=== PATIENT | male | born 1985 | race Caucasian/White ===

== ENCOUNTER 2017-12-30 03:25 | Emergency (ER) | payer SELFPAY, BC, OTHER | END 2017-12-30 06:06 | disposition left against medical advice (07) | LOC: M ED 03:25 | DX: Z53.29 Procedure and treatment not carried out because of patient's decision for other reasons (principal) ==

== ENCOUNTER → 2020-07-13 | Outpatient (CLI) | payer SELFPAY ==
[~2020-07-13] MED LIST: ABIL30TA4 PO; ADV500INH INH; ALBUTEROL MDI; ATIV1TAB7 PO; COGENTIN PO; MACR100C3 PO; RISP3TAB2 PO; Risperdal PO; SERO1TAB3 PO; SING4GRA PO; SING5CHW PO; SINGULAIR PO; TRAZ1TAB36 PO; Trazodone PO; VENTAER INH; ZEST5TAB PO
== END ==
LOC: M LABSMTC 13:04
PROVIDERS: ATTEND Pediatrics
DX: Z20.822 Contact with and (suspected) exposure to COVID-19 (principal)

== ENCOUNTER → 2020-08-05 | Outpatient (REF) | payer MEDICARE ==
[2020-08-05 12:28] LABS: BASO % 0.4 % (0.0-1.0); EOS # 1.1 10^3/uL (0.0-0.5); EOS % 11.2 % (0.0-3.0); HEMATOCRIT 47.6 % (42.0-52.0); HEMOGLOBIN 15.4 g/dl (13.5-17.5); LYMPH # 3.3 10^3/uL (1.5-5.0); LYMPH % 33.7 % (24.0-44.0); MEAN CORPUSCULAR HEMOGLOBIN 29.1 pg (27.0-33.0); MEAN CORPUSCULAR HGB CONC 32.4 g/dl (32.0-36.5); MONO % 10.5 % (2.0-8.0); NEUTROPHILS # 4.3 10^3/uL (1.5-8.5); NEUTROPHILS % 43.9 % (36.0-66.0); PLATELET COUNT, AUTOMATED 262 10^3/uL (150-450); RED BLOOD COUNT 5.29 10^6/uL (4.30-6.10); WHITE BLOOD COUNT 9.7 10^3/uL (4.0-10.0)
[2020-08-05 12:57] LABS: ALBUMIN 3.6 GM/DL (3.2-5.2); ALT/SGPT 54 U/L (12-78); BILIRUBIN,TOTAL 0.3 MG/DL (0.2-1.0); BLOOD UREA NITROGEN 12 MG/DL (7-18); CALCIUM LEVEL 8.8 MG/DL (8.5-10.1); CARBON DIOXIDE LEVEL 27 MEQ/L (21-32); CHLORIDE LEVEL 102 MEQ/L (98-107); CHOLESTEROL LEVEL 184 MG/DL (<200); CHOLESTEROL RISK RATIO 3.914 (<5); CREATININE FOR GFR 0.95 MG/DL (0.70-1.30); GLOMERULAR FILTRATION RATE > 60.0 (>60); GLUCOSE, FASTING 95 MG/DL (70-100); HDL CHOLESTEROL 47 MG/DL (>40); LDL CHOLESTEROL 107 MG/DL (<100); NON-HDL-C 137 MG/DL; SODIUM LEVEL 137 MEQ/L (136-145); TOTAL PROTEIN 7.6 GM/DL (6.4-8.2); TRIGLYCERIDES LEVEL 150 MG/DL (<150)
== END ==
LOC: M LAB REF 11:28
PROVIDERS: ATTEND Physician Assistant
DX: Z13.228 Encounter for screening for other metabolic disorders (principal); E78.5 Hyperlipidemia, unspecified; Z79.899 Other long term (current) drug therapy

== ENCOUNTER 2021-01-18 20:29 | Emergency (ER) | payer MEDICARE ==
[~2021-01-18] VITALS: Ht 185.4 cm; Wt 108.8 kg
[2021-01-18 20:31] VITALS: BP 152/88
== END 2021-01-18 22:25 | disposition left against medical advice (07) ==
LOC: M ED 20:29
DX: Z53.21 Procedure and treatment not carried out due to patient leaving prior to being seen by health care provider (principal)

== ENCOUNTER 2021-01-19 14:52 | Emergency (ER) | payer MEDICARE ==
[~2021-01-19] VITALS: Ht 185.4 cm; Wt 113.6 kg
[2021-01-19 16:26] LABS: BASO % 0.4 % (0.0-1.0); EOS # 0.7 10^3/uL (0.0-0.5); EOS % 6.6 % (0.0-3.0); HEMATOCRIT 49.2 % (42.0-52.0); HEMOGLOBIN 16.3 g/dl (13.5-17.5); LYMPH # 2.5 10^3/uL (1.5-5.0); MEAN CORPUSCULAR HEMOGLOBIN 29.5 pg (27.0-33.0); MEAN CORPUSCULAR HGB CONC 33.1 g/dl (32.0-36.5); MEAN CORPUSCULAR VOLUME 89.1 fl (80.0-96.0); MONO # 0.9 10^3/uL (0.0-0.8); MONO % 8.9 % (2.0-8.0); NEUTROPHILS # 6.2 10^3/uL (1.5-8.5); NEUTROPHILS % 59.7 % (36.0-66.0); PLATELET COUNT, AUTOMATED 260 10^3/uL (150-450); RED BLOOD COUNT 5.52 10^6/uL (4.30-6.10); WHITE BLOOD COUNT 10.3 10^3/uL (4.0-10.0)
[2021-01-19 16:52] LABS: BLOOD UREA NITROGEN 11 MG/DL (7-18); CALCIUM LEVEL 9.1 MG/DL (8.5-10.1); CARBON DIOXIDE LEVEL 28 MEQ/L (21-32); CHLORIDE LEVEL 104 MEQ/L (98-107); CREATININE FOR GFR 0.94 MG/DL (0.70-1.30); GLOMERULAR FILTRATION RATE > 60.0 (>60); GLUCOSE, FASTING 105 MG/DL (70-100); POTASSIUM SERUM 4.2 MEQ/L (3.5-5.1); SODIUM LEVEL 138 MEQ/L (136-145)
[2021-01-19 17:38] LABS: C REACTIVE PROTEIN QUANTITATIV 1.18 MG/DL (0.00-0.30)
[2021-01-19 18:25] LABS: ERYTHROCYTE SEDIMENTATION RATE 22 mm/hr (0-15)
--- NOTE | 2021-01-19 23:26 | REPVR ---
PROCEDURE INFORMATION: Exam: MR Lumbar Spine Without and With Contrast Exam date and time: 01/19/2021 9:13 PM Age: 35 years old Clinical indication: Low back pain; Patient HX: Lower back pain; Loss of control of bowel/bladder TECHNIQUE: Imaging protocol: Multiplanar magnetic resonance images of the lumbar spine without and with intravenous contrast. Contrast material: PROHANCE; Contrast volume: 20 ml; Contrast route: INTRAVENOUS (IV); COMPARISON: No relevant prior studies available. FINDINGS: Transitional anatomy at the lumbosacral junction. S1 is considered partially lumbarized. Mild retrolisthesis of L5 on S1. Vertebral body heights are preserved. Disc desiccation at L5-S1. Negative for discitis/osteomyelitis. Conus medullaris terminates L2. No epidural fluid collection. No pathologic intrathecal enhancement. L1-L2: No central or foraminal stenosis. L2-L3: No central or foraminal stenosis. L3-L4: No central or foraminal stenosis. L4-L5: No central or foraminal stenosis. L5-S1: Mild disc bulge with posterior annular tear, mild bilateral facet joint arthropathy and small bilateral facet joint effusions. No significant central canal stenosis. There is [id number] bilateral foraminal stenosis. IMPRESSION: 1. No acute abnormality involving the lumbar spine. 2. Degenerative findings as above contributing to [id number] bilateral foraminal stenosis at L5-S1. 3. No significant central canal compromise throughout. Electronically signed by: Aj Prabhakar On 01/19/2021 23:25:53 PM
[2021-01-19 23:36] VITALS: BP 145/86
== END 2021-01-19 23:57 | disposition home or self-care (01) ==
LOC: M ED 14:52
DX: F45.8 Other somatoform disorders (principal); F84.0 Autistic disorder; F60.9 Personality disorder, unspecified; N31.9 Neuromuscular dysfunction of bladder, unspecified; Z88.0 Allergy status to penicillin

== ENCOUNTER 2021-12-28 01:20 | Inpatient (IN) | payer MEDICARE ==
[~2021-12-28] VITALS: Ht 185.4 cm; Wt 104.3 kg
[2021-12-28 02:06] LABS: HEMOGLOBIN 14.7 g/dl (13.5-17.5); MEAN CORPUSCULAR HEMOGLOBIN 29.8 pg (27.0-33.0); MEAN CORPUSCULAR HGB CONC 33.4 g/dl (32.0-36.5); MEAN CORPUSCULAR VOLUME 89.2 fl (80.0-96.0); PLATELET COUNT, AUTOMATED 210 10^3/uL (150-450); RED BLOOD COUNT 4.93 10^6/uL (4.30-6.10); WHITE BLOOD COUNT 11.7 10^3/uL (4.0-10.0)
[2021-12-28 02:43] LABS: RSV AMPLIFICATION NEGATIVE (NEGATIVE)
[2021-12-28 02:46] LABS: ACETAMINOPHEN LEVEL < 2.0 UG/ML (10.0-30.0); ALBUMIN 3.7 GM/DL (3.2-5.2); ALT/SGPT 40 U/L (12-78); BILIRUBIN,DIRECT 0.1 MG/DL (0.0-0.2); BILIRUBIN,TOTAL 0.5 MG/DL (0.2-1.0); BLOOD UREA NITROGEN 16 MG/DL (7-18); CALCIUM LEVEL 8.6 MG/DL (8.5-10.1); CARBON DIOXIDE LEVEL 30 MEQ/L (21-32); CHLORIDE LEVEL 105 MEQ/L (98-107); CREATININE FOR GFR 0.91 MG/DL (0.70-1.30); ETHYL ALCOHOL (ETHANOL) < 0.003 % (0.000-0.010); GLOMERULAR FILTRATION RATE > 60.0 (>60); GLUCOSE, FASTING 90 MG/DL (70-100); POTASSIUM SERUM 3.7 MEQ/L (3.5-5.1); SALICYLATE LEVEL < 1.7 MG/DL (5.0-30.0); SODIUM LEVEL 138 MEQ/L (136-145); TOTAL PROTEIN 7.2 GM/DL (6.4-8.2)
[2021-12-28 02:56] LABS: AMPHETAMINES LEVEL URINE NEGATIVE (NEGATIVE); BARBITURATES URINE NEGATIVE (NEGATIVE); BENZODIAZEPINES URINE NEGATIVE (NEGATIVE); CANNABINOIDS URINE NEGATIVE (NEGATIVE); COCAINE METABOLITE URINE NEGATIVE (NEGATIVE); METHADONE URINE NEGATIVE (NEGATIVE); OPIATES URINE NEGATIVE (NEGATIVE); PHENCYCLIDINE URINE NEGATIVE (NEGATIVE)
[2021-12-28] MEDS ORDERED: ADV500INH INH (03:58)
[2021-12-28] MEDS ORDERED: ALBU8.5H INH (03:58)
[2021-12-28] MEDS ORDERED: HOME MED LIST COMPLETE! XX SCH (04:00)
[2021-12-28] MEDS: ADVAIR HFA 115/21MCG INHALER INH SCH ×2 (07:53→20:32)
[2021-12-28] MEDS ORDERED: NICOTINE 21MG/24HR 1 EA TRANSDERMAL TD SCH (09:00)
[2021-12-28] MEDS ORDERED: IBUPROFEN 400MG TAB PO PRN (14:05)
[2021-12-28] MEDS ORDERED: OLANZapine ORAL DISINTEGRATING TAB 5MG PO PRN (14:05)
[2021-12-28] MEDS ORDERED: ALBUTEROL 90 MCG/ACT 8GM HFA INHALER INH PRN (14:05)
[2021-12-28] MEDS ORDERED: MOM 30ML SUSPENSION UDC PO PRN (14:05)
[2021-12-28] MEDS ORDERED: MAALOX 30 ML SUSP *UDC PO PRN (14:05)
[2021-12-29 06:37] VITALS: BP 118/63
[2021-12-29] MEDS: ADVAIR HFA 115/21MCG INHALER INH SCH ×2 (09:45→20:52)
[2021-12-29] MEDS ORDERED: hydrOXYzine 50 MG TAB PO PRN (13:30)
[2021-12-29 17:54] VITALS: BP 117/74
[2021-12-29] MEDS: risperiDONE 1 MG TAB PO SCH (20:51)
[2021-12-29] MEDS ORDERED: OLANZapine 5 MG TAB PO SCH (21:00)
[2021-12-30 06:46] VITALS: BP 114/68
[2021-12-30] MEDS: ADVAIR HFA 115/21MCG INHALER INH SCH ×2 (08:35→20:21)
[2021-12-30 17:15] VITALS: BP 105/58
[2021-12-30] MEDS: risperiDONE 1 MG TAB PO SCH (20:21)
[2021-12-31 06:36] VITALS: BP 114/73
[2021-12-31] MEDS: ADVAIR HFA 115/21MCG INHALER INH SCH ×2 (07:51→20:08)
[2021-12-31 18:41] VITALS: BP 117/71
[2021-12-31] MEDS: risperiDONE 1 MG TAB PO SCH (20:08)
[2022-01-01 07:10] VITALS: BP 114/68
[2022-01-01] MEDS: ADVAIR HFA 115/21MCG INHALER INH SCH ×2 (09:06→20:07)
[2022-01-01 18:28] VITALS: BP 119/71
[2022-01-01] MEDS: risperiDONE 1 MG TAB PO SCH (20:07)
[2022-01-02 06:27] VITALS: BP 98/56
[2022-01-02] MEDS: ADVAIR HFA 115/21MCG INHALER INH SCH (08:03)
[2022-01-02] MEDS ORDERED: RISP-8 PO (08:04)
== END 2022-01-02 11:00 | disposition home or self-care (01) | DRG 885 ==
LOC: M ED 01:20 → M ED INP 14:03 → M PSY 15:51
PROVIDERS: ADMIT Psychiatry & Neurology Psychiatry; ATTEND Psychiatry & Neurology Psychiatry
DX: F20.9 Schizophrenia, unspecified (principal); F43.10 Post-traumatic stress disorder, unspecified; Z88.0 Allergy status to penicillin; Z79.899 Other long term (current) drug therapy; J45.909 Unspecified asthma, uncomplicated

== ENCOUNTER 2022-03-01 17:23 | Emergency (ER) | payer BC, MEDICARE ==
[~2022-03-01] VITALS: Ht 185.4 cm; Wt 105.0 kg
[~2022-03-01 17:23] MED LIST changes: +ALBU8.5H INH; +RISP-8 PO
[2022-03-01] MEDS ORDERED: INVE156I IM (17:35)
[2022-03-01] MEDS ORDERED: FLUT1BLS6 (17:35)
[2022-03-01] MEDS ORDERED: ALBU8.5H (17:35)
[2022-03-01] MEDS ORDERED: ACETAMINOPHEN TAB 650MG DOSE (2X325MG) PO ONE (18:20)
[2022-03-01 18:54] LABS: HEMATOCRIT 40.3 % (42.0-52.0); HEMOGLOBIN 13.5 g/dl (13.5-17.5); MEAN CORPUSCULAR HEMOGLOBIN 29.7 pg (27.0-33.0); MEAN CORPUSCULAR HGB CONC 33.5 g/dl (32.0-36.5); MEAN CORPUSCULAR VOLUME 88.8 fl (80.0-96.0); PLATELET COUNT, AUTOMATED 171 10^3/uL (150-450); RED BLOOD COUNT 4.54 10^6/uL (4.30-6.10); WHITE BLOOD COUNT 4.6 10^3/uL (4.0-10.0)
[2022-03-01 19:20] VITALS: BP 116/58
[2022-03-01 19:24] LABS: ACETAMINOPHEN LEVEL < 2.0 UG/ML (10.0-30.0); ALBUMIN 3.6 GM/DL (3.2-5.2); ALT/SGPT 45 U/L (12-78); BILIRUBIN,DIRECT 0.2 MG/DL (0.0-0.2); BILIRUBIN,TOTAL 0.5 MG/DL (0.2-1.0); BLOOD UREA NITROGEN 12 MG/DL (7-18); CALCIUM LEVEL 8.2 MG/DL (8.5-10.1); CARBON DIOXIDE LEVEL 25 MEQ/L (21-32); CHLORIDE LEVEL 99 MEQ/L (98-107); CREATININE FOR GFR 1.19 MG/DL (0.70-1.30); ETHYL ALCOHOL (ETHANOL) < 0.003 % (0.000-0.010); GLOMERULAR FILTRATION RATE > 60.0 (>60); GLUCOSE, FASTING 106 MG/DL (70-100); POTASSIUM SERUM 3.7 MEQ/L (3.5-5.1); SALICYLATE LEVEL < 1.7 MG/DL (5.0-30.0); SODIUM LEVEL 132 MEQ/L (136-145); THYROID STIMULATING HORMONE 0.154 uIU/ML (0.358-3.740); TOTAL PROTEIN 7.1 GM/DL (6.4-8.2)
[2022-03-01 21:11] LABS: AMPHETAMINES LEVEL URINE NEGATIVE (NEGATIVE); BARBITURATES URINE NEGATIVE (NEGATIVE); BENZODIAZEPINES URINE NEGATIVE (NEGATIVE); CANNABINOIDS URINE NEGATIVE (NEGATIVE); COCAINE METABOLITE URINE NEGATIVE (NEGATIVE); METHADONE URINE NEGATIVE (NEGATIVE); OPIATES URINE NEGATIVE (NEGATIVE); PHENCYCLIDINE URINE NEGATIVE (NEGATIVE)
== END 2022-03-01 22:34 | disposition home or self-care (01) ==
LOC: M ED 19:44
DX: F20.9 Schizophrenia, unspecified (principal); U07.1 COVID-19; Z88.0 Allergy status to penicillin

== ENCOUNTER 2022-03-08 16:53 | Emergency (ER) | payer MEDICARE ==
[~2022-03-08] VITALS: Ht 185.4 cm; Wt 102.3 kg
[~2022-03-08 16:53] MED LIST changes: +ALBU8.5H; +FLUT1BLS6; +INVE156I IM
[2022-03-08] MEDS ORDERED: LORA1TAB4 PO (18:00)
[2022-03-08 18:17] VITALS: BP 128/87
== END 2022-03-08 18:18 | disposition home or self-care (01) ==
LOC: M ED 16:53
DX: F20.9 Schizophrenia, unspecified (principal); F06.1 Catatonic disorder due to known physiological condition; J45.909 Unspecified asthma, uncomplicated; F41.9 Anxiety disorder, unspecified; F43.10 Post-traumatic stress disorder, unspecified; N31.9 Neuromuscular dysfunction of bladder, unspecified; Z88.0 Allergy status to penicillin; Z79.51 Long term (current) use of inhaled steroids; Z79.899 Other long term (current) drug therapy

== ENCOUNTER 2022-08-07 11:04 | Emergency (ER) | payer MEDICARE ==
[~2022-08-07] VITALS: Ht 185.4 cm; Wt 100.0 kg
[2022-08-07 11:04] VITALS: BP 139/81
[~2022-08-07 11:04] MED LIST changes: +LORA1TAB4 PO
[2022-08-07] MEDS ORDERED: HALO5TAB33 (11:10)
[2022-08-07] MEDS ORDERED: FLUT1BLS6 (11:10)
== END 2022-08-07 12:04 | disposition left against medical advice (07) ==
LOC: M ED 11:04
DX: Z53.21 Procedure and treatment not carried out due to patient leaving prior to being seen by health care provider (principal)

== ENCOUNTER 2022-08-07 21:27 | Emergency (ER) | payer MEDICARE ==
[~2022-08-07] VITALS: Ht 185.4 cm; Wt 117.6 kg
[~2022-08-07 21:27] MED LIST changes: +HALO5TAB33
[2022-08-07 21:28] VITALS: BP 115/81
== END 2022-08-07 22:32 | disposition left against medical advice (07) ==
LOC: M ED 21:27
DX: Z53.21 Procedure and treatment not carried out due to patient leaving prior to being seen by health care provider (principal)

== ENCOUNTER 2023-08-24 02:11 | Emergency (ER) | payer MEDICARE ==
[~2023-08-24] VITALS: Ht 185.4 cm; Wt 106.7 kg
[~2023-08-24 02:11] MED LIST changes: +LORA1TAB23 PO; -LORA1TAB4 PO; +RISP-105 PO; -RISP-8 PO
[2023-08-24 02:12] VITALS: BP 131/92; TEMP 97.4; O2SAT 100
[2023-08-24] MEDS ORDERED: QUET400T2 PO (02:20)
== END 2023-08-24 04:30 | disposition left against medical advice (07) ==
LOC: M ED 02:11
DX: Z53.21 Procedure and treatment not carried out due to patient leaving prior to being seen by health care provider (principal)

== ENCOUNTER 2023-11-21 23:04 | Inpatient (IN) | payer MEDICARE ==
[~2023-11-21] VITALS: Ht 185.4 cm; Wt 102.3 kg
[~2023-11-21 23:04] MED LIST changes: -ALBU8.5H; +QUET400T2 PO
[2023-11-21] MEDS ORDERED: ATIV1TAB10 (23:38)
[2023-11-22 00:25] LABS: HEMATOCRIT 47.4 % (42.0-52.0); HEMOGLOBIN 15.8 g/dl (13.5-17.5); MEAN CORPUSCULAR HEMOGLOBIN 30.2 pg (27.0-33.0); MEAN CORPUSCULAR HGB CONC 33.3 g/dl (32.0-36.5); MEAN CORPUSCULAR VOLUME 90.6 fl (80.0-96.0); PLATELET COUNT, AUTOMATED 230 10^3/uL (150-450); RED BLOOD COUNT 5.23 10^6/uL (4.30-6.10); WHITE BLOOD COUNT 8.7 10^3/uL (4.0-10.0)
[2023-11-22 00:59] LABS: ETHYL ALCOHOL (ETHANOL) < 0.003 % (0.000-0.010)
[2023-11-22 01:01] LABS: ALKALINE PHOSPHATASE 93 U/L (46-116); ALT/SGPT 28 U/L (7.0-40); AST/SGOT 11 U/L (<34); BILIRUBIN,DIRECT 0.1 MG/DL (<0.4); BILIRUBIN,TOTAL 0.4 MG/DL (0.3-1.2); BLOOD UREA NITROGEN 11 MG/DL (9-23); CALCIUM LEVEL 9.9 MG/DL (8.5-10.1); CARBON DIOXIDE LEVEL 31 MMOL/L (20-31); CHLORIDE LEVEL 102 MMOL/L (98-107); CREATININE FOR GFR 0.85 MG/DL (0.70-1.30); GLOMERULAR FILTRATION RATE > 60.0 (>60); GLUCOSE, FASTING 105 MG/DL (60-100); POTASSIUM SERUM 4.3 MMOL/L (3.5-5.1); SALICYLATE LEVEL < 3.0 MG/DL (<30); SODIUM LEVEL 138 MMOL/L (136-145); TOTAL PROTEIN 7.7 G/DL (5.7-8.2)
[2023-11-22 01:03] LABS: THYROID STIMULATING HORMONE 1.177 uIU/ML (0.55-4.78)
[2023-11-22 01:09] LABS: AMPHETAMINES LEVEL URINE NEGATIVE (NEGATIVE); BARBITURATES URINE NEGATIVE (NEGATIVE); BENZODIAZEPINES URINE NEGATIVE (NEGATIVE); COCAINE METABOLITE URINE NEGATIVE (NEGATIVE)
[2023-11-22 01:10] LABS: CANNABINOIDS URINE NEGATIVE (NEGATIVE); METHADONE URINE NEGATIVE (NEGATIVE); OPIATES URINE NEGATIVE (NEGATIVE); PHENCYCLIDINE URINE NEGATIVE (NEGATIVE)
[2023-11-22] MEDS: QUEtiapine FUMARATE 200 MG TAB PO ONE (03:07)
[2023-11-22] MEDS ORDERED: ALLE180T33 PO (03:21)
[2023-11-22] MEDS ORDERED: FLUT1BLS6 INH (03:21)
[2023-11-22] MEDS ORDERED: HOME MED LIST COMPLETE! XX SCH (03:25)
[2023-11-22] MEDS ORDERED: ADVAIR HFA 230/21MCG INHALER INH SCH (09:00)
[2023-11-22] MEDS ORDERED: QUEtiapine FUMARATE 200 MG TAB PO SCH (09:00)
[2023-11-22] MEDS: FEXOFENADINE 60MG TAB PO SCH (09:20)
[2023-11-22] MEDS: ADVAIR HFA 230/21MCG INHALER INH SCH (10:04)
[2023-11-22] MEDS ORDERED: ACETAMINOPHEN TAB 650MG DOSE (2X325MG) PO PRN (14:55)
[2023-11-22] MEDS ORDERED: MOM 30ML SUSPENSION UDC PO PRN (14:55)
[2023-11-22] MEDS ORDERED: IBUPROFEN 400MG TAB PO PRN (14:55)
[2023-11-22] MEDS ORDERED: MAALOX 30 ML SUSP *UDC PO PRN (14:55)
[2023-11-22] MEDS ORDERED: traZODone 50 MG TAB PO PRN (14:55)
[2023-11-22] MEDS ORDERED: OLANZapine 5 MG TAB PO PRN (14:55)
[2023-11-22] MEDS ORDERED: diphenhydrAMINE 25MG CAP PO PRN (14:55)
[2023-11-22 16:42] VITALS: BP 131/91; TEMP 97.6; O2SAT 97
[2023-11-22] MEDS: ADVAIR HFA 115/21MCG INHALER INH SCH (21:07)
[2023-11-22] MEDS: QUEtiapine FUMARATE 200 MG TAB PO SCH (21:08)
[2023-11-23] MEDS ORDERED: QUEtiapine FUMARATE 200 MG TAB PO SCH ×2 (02:00→09:00)
[2023-11-23 06:00] VITALS: BP 126/67; TEMP 97.3; O2SAT 97
[2023-11-23] MEDS: FEXOFENADINE 60MG TAB PO SCH (09:21)
[2023-11-23] MEDS ORDERED: ALBUTEROL 90 MCG/ACT 8GM HFA INHALER INH PRN (16:55)
[2023-11-23 18:00] VITALS: BP 117/82; TEMP 97.4; O2SAT 97
[2023-11-24 06:31] VITALS: BP 108/65; TEMP 97.1; O2SAT 20
[2023-11-24 18:00] VITALS: BP 121/80; TEMP 97.1; O2SAT 97
[2023-11-25 06:02] VITALS: BP 125/76; TEMP 97.8; O2SAT 97
[2023-11-25 18:50] VITALS: BP 142/93; TEMP 97.1
[2023-11-25] MEDS: QUEtiapine FUMARATE 100 MG TAB PO SCH (21:07)
[2023-11-26 06:12] VITALS: BP 135/81; TEMP 97.8; O2SAT 100
[2023-11-26 09:29] LABS: CHOLESTEROL RISK RATIO 3.33 (<5); HDL CHOLESTEROL 49.2 MG/DL (>40); LDL CHOLESTEROL 95.8 MG/DL (<100); NON-HDL-C 114.8 MG/DL
[2023-11-26] MEDS: RISPERIDONE 1 MG TAB PO SCH (10:18)
[2023-11-26 16:32] VITALS: BP 140/82; TEMP 98.2; O2SAT 98
[2023-11-27 06:45] VITALS: BP 135/74; TEMP 97.2; O2SAT 95
[2023-11-27 18:21] VITALS: BP 119/86; TEMP 97.7
[2023-11-28 06:00] VITALS: BP 111/61; TEMP 97.9; O2SAT 96
[2023-11-28 17:16] VITALS: BP 133/87; TEMP 97.4; O2SAT 98
[2023-11-29 07:00] VITALS: BP 116/63; TEMP 98; O2SAT 97
[2023-11-29] MEDS ORDERED: RISP1TAB42 PO (09:15)
[2023-11-29] MEDS ORDERED: QUET100T2 PO (09:15)
== END 2023-11-29 10:20 | disposition home or self-care (01) | DRG 885 ==
LOC: M ED 23:04 → M ED INP 11-22 14:52 → M PSY 11-22 16:00
PROVIDERS: ADMIT Student in an Organized Health Care Education/Training Program; ATTEND Student in an Organized Health Care Education/Training Program
DX: F20.9 Schizophrenia, unspecified (principal); F43.10 Post-traumatic stress disorder, unspecified; J45.909 Unspecified asthma, uncomplicated; Z79.899 Other long term (current) drug therapy; Z88.0 Allergy status to penicillin

== ENCOUNTER 2024-01-04 04:38 | Emergency (ER) | payer MEDICARE ==
[~2024-01-04] VITALS: Ht 185.4 cm; Wt 107.8 kg
[~2024-01-04 04:38] MED LIST changes: +ALLE180T33 PO; +ATIV1TAB10; +FLUT1BLS6 INH; +QUET100T2 PO; +RISP1TAB42 PO
[2024-01-04 04:39] VITALS: BP 145/79; TEMP 98; O2SAT 98
[2024-01-04] MEDS ORDERED: HYDR25OIN TOP (06:18)
== END 2024-01-04 06:47 | disposition home or self-care (01) ==
LOC: M ED 04:38
DX: L20.89 Other atopic dermatitis (principal); Z88.0 Allergy status to penicillin; Z79.899 Other long term (current) drug therapy

== ENCOUNTER → 2024-01-30 | Emergency (ER) | payer MEDICARE ==
[~2024-01-30] VITALS: Ht 185.4 cm; Wt 106.2 kg
[~2024-01-30] MED LIST changes: +HYDR25OIN TOP
[2024-01-30 01:53] VITALS: BP 132/89; TEMP 97.7; O2SAT 98
== END | disposition left against medical advice (07) ==
LOC: M ED 01:53
DX: Z53.21 Procedure and treatment not carried out due to patient leaving prior to being seen by health care provider (principal)

== ENCOUNTER 2024-02-03 02:21 | Emergency (ER) | payer MEDICARE, MEDICAID ==
[~2024-02-03] VITALS: Ht 182.9 cm; Wt 106.3 kg
[2024-02-03 02:22] VITALS: BP 158/100; TEMP 98.6; O2SAT 97
== END 2024-02-03 04:47 | disposition left against medical advice (07) ==
LOC: M ED 02:21
DX: I86.8 Varicose veins of other specified sites (principal); F41.9 Anxiety disorder, unspecified; F43.10 Post-traumatic stress disorder, unspecified; F20.9 Schizophrenia, unspecified; Z88.0 Allergy status to penicillin; Z79.899 Other long term (current) drug therapy; Z53.9 Procedure and treatment not carried out, unspecified reason

== ENCOUNTER 2025-01-13 22:36 | Emergency (ER) | payer MEDICARE, MEDICAID ==
[~2025-01-13] VITALS: Ht 185.4 cm; Wt 123.7 kg
[~2025-01-13 22:36] MED LIST changes: +ADVA1AER10 INH
[2025-01-13 22:38] VITALS: TEMP 98.4
[2025-01-14 05:04] VITALS: BP 134/74; O2SAT 98
== END 2025-01-14 05:48 | disposition home or self-care (01) ==
LOC: M ED 22:36
DX: R07.89 Other chest pain (principal); J45.909 Unspecified asthma, uncomplicated; F20.9 Schizophrenia, unspecified; Z88.0 Allergy status to penicillin; Z79.899 Other long term (current) drug therapy